=== PATIENT | male | born 1940 | race Caucasian/White ===

== ENCOUNTER → 2016-08-01 | Outpatient (CLI) | payer BC ==
[~2016-08-01] MED LIST: AMLO-110 PO; ASPCH81; BYS/5 PO; CRS10 PO; OMEG10007 PO
[2016-08-01 10:33] LABS: ESTIMATED AVERAGE GLUCOSE 120 mg/dl; HA1C FLAG Normal (Normal)
[2016-08-01 10:48] LABS: ALT/SGPT 28 U/L (12-78); AST/SGOT 17 U/L (15-37); BLOOD UREA NITROGEN 10 mg/dl (7-18); BUN/CREATININE RATIO 7.8 (10-20); CALCIUM 8.8 mg/dl (8.5-10.1); CARBON DIOXIDE 25 mmol/L (21-32); CHLORIDE 105 mmol/L (98-107); GLUCOSE 103 mg/dl (70-99); POTASSIUM 3.9 mmol/L (3.5-5.1); SODIUM 141 mmol/L (136-145)
[2016-08-01 10:54] LABS: ALKALINE PHOSPHATASE 55 U/L (45-117); CHOLESTEROL 121 mg/dl (0-200); CHOLESTEROL/HDL RATIO 3.8; HDL CHOLESTEROL 32 mg/dl; LDL CHOLESTEROL CALCULATED 46 mg/dl; PROSTATE SPECIFIC ANTIGEN 0.043 ng/ml (0.000-4.000); TRIGLYCERIDES 216 mg/dl (0-150); VERY LOW DENSITY LIPOPROT CALC 43 mg/dl
--- NOTE | 2016-08-05 10:07 | CODING QUERY MEDICAL NECESSITY ---
SUPPORTING DIAGNOSIS NEEDED Dr. Way, A supporting diagnosis is required for the test/procedure performed on this patient in order for us to be reimbursed by the patient's insurance. Please provide a supporting diagnosis for the following test/procedure listed below next to the test name along with your signature. *If there is no additional diagnosis for this patient that would support the following test/procedure please document that below next to the test/procedure. Test(s)/Procedure(s) that require a supporting diagnosis: * [id number] PSA DIAGNOSIS: DATE OF SERVICE: 08/01/16 Provider Signature: Date: Thank you Candido Waddell [facility] Information Management Once completed, please kindly fax back to [phone] For questions please call [phone]
== END | disposition home or self-care (01) ==
LOC: C.LAB 09:13
PROVIDERS: ATTEND Internal Medicine
DX: R73.01 Impaired fasting glucose (principal); C61 Malignant neoplasm of prostate

== ENCOUNTER → 2017-01-25 | Outpatient (CLI) | payer BC ==
[2017-01-25 10:44] LABS: BASO % 0.3 %; BASO ABS # 0.03 K/uL (0-0.2); COMPLETE YES; EOS % 2.4 %; HEMATOCRIT 48.5 % (42-52); IG% 0.2 %; LYMPH % 40.5 %; LYMPH ABS # 3.52 K/uL (1.2-3.4); MEAN CELL VOLUME 91.5 fL (80-100); MEAN CORPUSCULAR HEMOGLOBIN 31.1 pg (25-34); MEAN PLATELET VOLUME 10.2 fL (7.4-10.4); MONO % 10.8 %; NEUT % 45.8 %; PLATELET COUNT 220 K/uL (130-400)
[2017-01-25 10:57] LABS: ALT/SGPT 27 U/L (12-78); BLOOD UREA NITROGEN 20 mg/dl (7-18); BUN/CREATININE RATIO 15.5 (10-20); CALCIUM 8.8 mg/dl (8.5-10.1); CARBON DIOXIDE 27 mmol/L (21-32); CHLORIDE 108 mmol/L (98-107); CHOLESTEROL 111 mg/dl (0-200); GLUCOSE 105 mg/dl (70-99); POTASSIUM 3.9 mmol/L (3.5-5.1); SODIUM 141 mmol/L (136-145); TRIGLYCERIDES 136 mg/dl (0-150); VERY LOW DENSITY LIPOPROT CALC 27 mg/dl
[2017-01-25 11:01] LABS: ALKALINE PHOSPHATASE 58 U/L (45-117); AST/SGOT 18 U/L (15-37); CHOLESTEROL/HDL RATIO 3.1; HDL CHOLESTEROL 36 mg/dl; LDL CHOLESTEROL CALCULATED 48 mg/dl
[2017-01-25 12:11] LABS: ESTIMATED AVERAGE GLUCOSE 120 mg/dl; HA1C FLAG Normal (Normal)
--- NOTE | 2017-02-01 10:28 | CODING QUERY MEDICAL NECESSITY ---
SUPPORTING DIAGNOSIS NEEDED Dr. Way, A supporting diagnosis is required for the test/procedure performed on this patient in order for us to be reimbursed by the patient's insurance. Please provide a supporting diagnosis for the following test/procedure listed below next to the test name along with your signature. *If there is no additional diagnosis for this patient that would support the following test/procedure please document that below next to the test/procedure. Test(s)/Procedure(s) that require a supporting diagnosis: * [id number] PSA DIAGNOSIS: DATE OF SERVICE: 01/25/17 Provider Signature: Date: Thank you Candido Waddell [facility] Information Management Once completed, please kindly fax back to [phone] For questions please call [phone]
== END | disposition home or self-care (01) ==
LOC: C.LAB 09:41
PROVIDERS: ATTEND Internal Medicine
DX: R73.01 Impaired fasting glucose (principal); C61 Malignant neoplasm of prostate

== ENCOUNTER 2017-07-11 10:32 | Observation (INO) | payer BC ==
[~2017-07-11] VITALS: Ht 172.7 cm; Wt 85.0 kg
[2017-07-11] MEDS ORDERED: METOPROLOL TARTRATE 1 MG/ML VIAL IV STA (10:48)
[2017-07-11] MEDS ORDERED: SODIUM CHLORIDE 0.9% 500ML 500 ML IV STA (10:48)
--- NOTE | 2017-07-11 10:53 | EMERGENCY ROOM VISIT NOTE ---
History Report prepared by Chyna: Franky Magdaleno Under the Supervision of: Dr. John Logan M.D. First contact with patient: 10:42 Chief Complaint: CARDIAC ASSESSMENT Stated Complaint: ATRIAL FIBRILATION - RAPID RESPONSE History of Present Illness The patient is a 76 year old male who presents to the Emergency Room for a cardiac assessment. He has a past medical history of hypertension and hyperlipidemia. The patient was at [facility] about to receive a colonoscopy and was found to be in atrial fibrillation. This has never happened to the patient before and he denies any cardiac history. He denies any abnormal symptoms at this time including chest pain, shortness of breath, or dizziness. He notes that he has a family history of atrial fibrillation in regard to his brother. He is not on any blood thinners. Source of History: patient Onset: earlier this morning Position: other (Cardiac) Symptom Intensity: moderate Quality: other (Possible A-FIB) Timing: constant Associated Symptoms: No chest pain, No SOB Note: He denies any dizziness or any abnormal symptom at this time. Review of Systems See HPI for pertinent positives & negatives. A total of 10 systems reviewed and were otherwise negative. Past Medical & Surgical Medical Problems: (1) HLD (hyperlipidemia) (2) HTN (hypertension) Family History Atrial fibrillation Social History Smoking Status: Never Smoker Smokeless Tobacco Use: No Drug Use: none Marital Status: Housing Status: lives with significant other Occupation Status: retired Current/Historical Medications Scheduled Amlodipine (Norvasc), 5 MG PO DAILY Aspirin (Aspirin), 8 MG PO DAILY Fish Oil ([place]-3), 1 CAP PO DAILY Rosuvastatin Calcium (Crestor), 10 MG PO HS Miscellaneous Medications Nebivolol Hcl (Bystolic), 5 MG PO Allergies Coded Allergies: No Known Allergies (Unverified , 07/11/17) Physical Exam Vital Signs Date Time Temp Pulse Resp B/P (MAP) Pulse Ox O2 Delivery O2 Flow Rate FiO2 07/11/17 12:16 155/100 07/11/17 12:00 93 19 148/90 96 07/11/17 11:45 140/87 07/11/17 11:30 104 11 153/88 90 07/11/17 11:17 94 14 142/97 97 Room Air 07/11/17 11:10 96 19 150/98 97 Room Air 07/11/17 11:05 105 14 149/101 97 Room Air 07/11/17 11:03 119 152/105 07/11/17 11:00 109 13 152/105 98 Room Air 07/11/17 10:54 97 Room Air 07/11/17 10:51 130 07/11/17 10:38 36.6 124 20 152/97 97 Room Air Physical Exam GENERAL: Patient is in no acute distress. HEENT: No acute trauma, normocephalic atraumatic, mucous membranes moist, no nasal congestion, no scleral icterus. NECK: No stridor, no adenopathy, no meningismus, trachea is midline. LUNGS: Clear to auscultation bilaterally, no wheeze, no rhonchi, breath sounds equal. HEART: Tachycardic rate with an irregular rhythm. No murmurs. ABDOMEN: Soft, nontender, bowel sounds positive, no hernias, no peritonitis. EXTREMITIES: No cyanosis or edema, full range of motion of all the joints without pain or difficulty, no signs for acute trauma. NEUROLOGIC: Oriented x 3, no acute motor or sensory deficits, no focal weakness. SKIN: No rash, no jaundice, no diaphoresis. Medical Decision & Procedures ER Provider Diagnostic Interpretation: Radiology results as stated below per my review and radiologist interpretation: CHEST ONE VIEW PORTABLE CLINICAL HISTORY: Chest pain. COMPARISON STUDY: No previous studies for comparison. FINDINGS: Lung volumes are normal. No pneumothorax or pleural effusion is noted. An 8 mm radiodensity projects over the right midlung and posterior right seventh rib. This likely reflects a calcified nodule or benign rib lesion. A few old left rib fractures are noted. There is no evidence for pulmonary edema. There is no consolidation to suggest pneumonia. IMPRESSION: No acute cardiopulmonary findings. Electronically signed by: Bernardino Cox M.D. 07/11/2017 11:03 AM Dictated Date/Time: 07/11/2017 10:58 AM Laboratory Results 07/11/17 10:50 07/11/17 10:50 Test 07/11/17 10:50 Red Blood Count 5.70 M/uL (4.7-6.1) Mean Corpuscular Volume 90.5 fL (80-100) Mean Corpuscular Hemoglobin 32.6 pg (25-34) Mean Corpuscular Hemoglobin Concent 36.0 g/dl (32-36) RDW Standard Deviation 46.3 fL (36.4-46.3) RDW Coefficient of Variation 13.9 % (11.5-14.5) Mean Platelet Volume 9.8 fL (7.4-10.4) Prothrombin Time 10.7 SECONDS (9.0-12.0) Prothromb Time International Ratio 1.0 (0.9-1.1) Activated Partial Thromboplast Time 27.6 SECONDS (21.0-31.0) Partial Thromboplastin Ratio 1.1 Anion Gap 7.0 mmol/L (3-11) Est Creatinine Clear Calc Drug Dose 48.0 ml/min Estimated GFR () 55.1 Estimated GFR (Non- 47.6 BUN/Creatinine Ratio 7.6 (10-20) Calcium Level 8.8 mg/dl (8.5-10.1) Magnesium Level 2.0 mg/dl (1.8-2.4) Total Bilirubin 1.1 mg/dl (0.2-1) Aspartate Amino Transf (AST/SGOT) 21 U/L (15-37) Alanine Aminotransferase (ALT/SGPT) 28 U/L (12-78) Alkaline Phosphatase 48 U/L (45-117) Troponin I < 0.015 ng/ml (0-0.045) Total Protein 7.6 gm/dl (6.4-8.2) Albumin 4.0 gm/dl (3.4-5.0) Globulin 3.6 gm/dl (2.5-4.0) Albumin/Globulin Ratio 1.1 (0.9-2) Thyroid Stimulating Hormone (TSH) 2.060 uIu/ml (0.300-4.500) Laboratory results reviewed by me. Medications Administered Medications (Trade) Dose Ordered Sig/Mel Route Start Time Stop Time Status Last Admin Dose Admin Sodium Chloride 500 ml @ 999 mls/hr Q31M STAT IV 07/11/17 10:48 07/11/17 11:18 DC 07/11/17 11:02 999 MLS/HR Metoprolol Tartrate (Lopressor Iv) 10 mg NOW STAT IV 07/11/17 10:48 07/11/17 10:51 DC 07/11/17 11:03 5 MG Sodium Chloride 1,000 ml @ 100 mls/hr Q10H IV 07/11/17 12:21 07/11/17 22:20 07/11/17 15:18 100 MLS/HR Metoprolol Tartrate (Lopressor Tab) 50 mg NOW STAT PO 07/11/17 12:21 07/11/17 12:33 DC 07/11/17 12:49 50 MG ECG Indication: tachycardia Rate (beats per minute): 125 Rhythm: atrial fibrillation Findings: no acute ischemic change, other (No artifact) Change: ECG interpreted by me ED Course 1042: The patient was evaluated in room B9. A complete history and physical exam was performed. 1048: Ordered Lopressor Iv 10 mg IV, Sodium Chloride 500 ml @ 999 mls/hr IV 1149: Upon reexamination the patient is resting. I discussed results and treatment plan with the patient. He verbalizes agreement and understanding. I spoke [place] [facility] [place] discussed the patient's results and findings. The patient will be evaluated by him for further management. Medical Decision Differential diagnosis includes but is not limited to rapid atrial fibrillation , SVT, atrial flutter, electrolyte imbalance, DC, infection, and dehydration. There is no leukocytosis or concerning anemia. No significant electrolyte abnormality, kidney failure or hepatitis. The patient appears to be in a euthyroid state. EKG shows a rapid A. fib, no acute ischemia. Cardiac enzyme testing 1 is not consistent with acute cardiac injury. Chest x-ray does not show mediastinal widening, pneumonia or pneumothorax. The patient presents with a rapid A. fib. He was aggressively managed. He received IV saline and IV Lopressor, he is doing well, the heart rate is better controlled. The patient requires a hospital stay for further cardiac workup. We are unsure how long he has been in this rhythm. I spoke to case management. The on-call hospitalist was consulted. Medication Reconcilliation Current Medication List: was personally reviewed by me Blood Pressure Screening Patient's blood pressure: Elevated blood pressure Referred to hospitalist Consults Time Called: [phone] Consulting Physician: Dr. Whyte - [facility] [place]ed Call: [phone] Discussed the patient's case. The patient will be evaluated for further management. Impression Primary Impression: Rapid atrial fibrillation Scribe Attestation The scribe's documentation has been prepared under my direction and personally reviewed by me in its entirety. I confirm that the note above accurately reflects all work, treatment, procedures, and medical decision making performed by me. Departure Information Dispostion Being Evaluated By Hospitalist Referrals Fransisco Way M.D. (PCP) Patient Instructions My [facility]
[2017-07-11 11:02] LABS: HEMATOCRIT 51.6 % (42-52); HEMOGLOBIN 18.6 g/dL (14.0-18.0); MEAN CELL VOLUME 90.5 fL (80-100); MEAN CORPUSCULAR HEMOGLOBIN 32.6 pg (25-34); MEAN PLATELET VOLUME 9.8 fL (7.4-10.4); PLATELET COUNT 212 K/uL (130-400); RED CELL DISTRIBUTION WIDTH CV 13.9 % (11.5-14.5); RED CELL DISTRIBUTION WIDTH SD 46.3 fL (36.4-46.3); WHITE BLOOD COUNT 9.32 K/uL (4.8-10.8)
--- NOTE | 2017-07-11 11:04 | DIAGNOSTIC IMAGING REPORT ---
CHEST ONE VIEW PORTABLE CLINICAL HISTORY: Chest pain. COMPARISON STUDY: No previous studies for comparison. FINDINGS: Lung volumes are normal. No pneumothorax or pleural effusion is noted. An 8 mm radiodensity projects over the right midlung and posterior right seventh rib. This likely reflects a calcified nodule or benign rib lesion. A few old left rib fractures are noted. There is no evidence for pulmonary edema. There is no consolidation to suggest pneumonia. IMPRESSION: No acute cardiopulmonary findings. Electronically signed by: Bernardino Cox M.D. 07/11/2017 11:03 AM Dictated Date/Time: 07/11/2017 10:58 AM
[2017-07-11 11:10] LABS: PTT PATIENT 27.6 SECONDS (21.0-31.0)
[2017-07-11] MEDS ORDERED: ASPI-461 PO (11:17)
[2017-07-11] MEDS ORDERED: CRS/10 PO (11:17)
[2017-07-11 11:21] LABS: BLOOD UREA NITROGEN 11 mg/dl (7-18); CALCIUM 8.8 mg/dl (8.5-10.1); CARBON DIOXIDE 25 mmol/L (21-32); CREATININE 1.43 mg/dl (0.60-1.40); GLUCOSE 134 mg/dl (70-99); POTASSIUM 3.5 mmol/L (3.5-5.1); SODIUM 137 mmol/L (136-145)
[2017-07-11 11:32] LABS: ALKALINE PHOSPHATASE 48 U/L (45-117); ALT/SGPT 28 U/L (12-78); AST/SGOT 21 U/L (15-37); TOTAL PROTEIN 7.6 gm/dl (6.4-8.2)
--- NOTE | 2017-07-11 12:09 | History and Physical ---
History & Physical Date & Time of Service: Jul 11, 2017 at 11:57 Chief Complaint: Atrial Fibrilation - Rapid Response Primary Care Physician: Fransisco Way M.D. History of Present Illness Source: patient 76yo male with history of HTN & Hyperlipidemia who presents after he was found to be in rapid a. fib when he went to [facility] for a routine colonoscopy. His heart rate was in the 140s when he presented there. EKG from [facility] confirmed rapid a. fib. He takes bystolic for HTN and has been on such for 2-3 years. He took his bystolic this AM about 0300. He notes he works out several times a week at the gym and has not noted ANY limiting chest pain, dyspnea, palpitations, or lightheadedness. Exercise capacity has been unchanged. No prior h/o CAD or PE or hyperthyroidism. Past Medical/Surgical History PMH: 1. HTN 2. 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 prostate cancer no h/o CAD, PE, CKD, stroke, CHF PSH: 1. vasectomy 2. prostate cancer s/p radiation seeds Family History brother - a. fib mother - no CAD; from biliary tract disease - cause? 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)) Multi-Drug Resistant Organisms History of MDRO: No Allergies Coded Allergies: No Known Allergies (Unverified , 07/11/17) Home Medications Scheduled Amlodipine (Norvasc), 5 MG PO DAILY Aspirin (Aspirin), 8 MG PO DAILY Fish Oil ([place]-3), 1 CAP PO DAILY Rosuvastatin Calcium (Crestor), 10 MG PO HS Miscellaneous Medications Nebivolol Hcl (Bystolic), 5 MG PO Review of Systems Constitutional: No fever, No chills, No weight loss, No weakness, No fatigue Eyes: No worsening of vision ENT: No nasal symptoms, No sore throat, No trouble swallowing Respiratory: No cough, No sputum, No wheezing, No shortness of breath, No dyspnea on exertion Cardiovascular: No chest pain, No orthopnea, No PND, No edema, No palpitations Abdomen: No pain, No nausea, No vomiting, No diarrhea, No GI bleeding Musculoskeletal: No joint pain, No muscle pain Genitourinary - Male: No hematuria, No dysuria Neurologic: No numbness/tingling Psychiatric: No depression symptoms, No anxiety Endocrine: No fatigue Hematologic / Lymphatic: No abnormal bleeding/bruising Integumentary: No rash Physical Exam Vital Signs Date Time Temp Pulse Resp B/P (MAP) Pulse Ox O2 Delivery O2 Flow Rate FiO2 07/11/17 11:17 94 14 142/97 97 Room Air 07/11/17 11:10 96 19 150/98 97 Room Air 07/11/17 11:05 105 14 149/101 97 Room Air 07/11/17 11:03 119 152/105 07/11/17 11:00 109 13 152/105 98 Room Air 07/11/17 10:54 97 Room Air 07/11/17 10:51 130 07/11/17 10:38 36.6 124 20 152/97 97 Room Air General Appearance: WD/WN, no apparent distress Head: normocephalic, atraumatic Eyes: PERRL ENT: hearing grossly normal, TMs normal, pharynx normal Neck: supple, no adenopathy, thyroid normal, no JVD, no carotid bruits Respiratory/Chest: lungs clear, no respiratory distress, no accessory muscle use Cardiovascular: no gallop, no JVD, no murmur, normal peripheral pulses, + tachycardia, + irregularly irregular Abdomen/GI: normal bowel sounds, non tender, soft, no organomegaly Back: normal inspection Extremities/Musculoskelatal: no pedal edema Neurologic/Psych: no motor/sensory deficits, alert, normal mood/affect, normal reflexes, oriented x 3 Skin: no rash Lymphatic: no adenopathy (CERVICAL ) Diagnostics Laboratory Results Results Past 24 Hours Test 07/11/17 10:50 Range/Units White Blood Count 9.32 4.8-10.8 K/uL Red Blood Count 5.70 4.7-6.1 M/uL Hemoglobin 18.6 14.0-18.0 g/dL Hematocrit 51.6 42-52 % Mean Corpuscular Volume 90.5 80-100 fL Mean Corpuscular Hemoglobin 32.6 25-34 pg Mean Corpuscular Hemoglobin Concent 36.0 32-36 g/dl RDW Standard Deviation 46.3 36.4-46.3 fL RDW Coefficient of Variation 13.9 11.5-14.5 % Platelet Count 212 130-400 K/uL Mean Platelet Volume 9.8 7.4-10.4 fL Prothrombin Time 10.7 9.0-12.0 SECONDS Prothromb Time International Ratio 1.0 0.9-1.1 Activated Partial Thromboplast Time 27.6 21.0-31.0 SECONDS Partial Thromboplastin Ratio 1.1 Sodium Level 137 136-145 mmol/L Potassium Level 3.5 3.5-5.1 mmol/L Chloride Level 105 98-107 mmol/L Carbon Dioxide Level 25 21-32 mmol/L Anion Gap 7.0 3-11 mmol/L Blood Urea Nitrogen 11 7-18 mg/dl Creatinine 1.43 0.60-1.40 mg/dl Est Creatinine Clear Calc Drug Dose 48.0 ml/min Estimated GFR () 55.1 Estimated GFR (Non- 47.6 BUN/Creatinine Ratio 7.6 10-20 Random Glucose 134 70-99 mg/dl Calcium Level 8.8 8.5-10.1 mg/dl Magnesium Level 2.0 1.8-2.4 mg/dl Total Bilirubin 1.1 0.2-1 mg/dl Aspartate Amino Transf (AST/SGOT) 21 15-37 U/L Alanine Aminotransferase (ALT/SGPT) 28 12-78 U/L Alkaline Phosphatase 48 45-117 U/L Troponin I < 0.015 0-0.045 ng/ml Total Protein 7.6 6.4-8.2 gm/dl Albumin 4.0 3.4-5.0 gm/dl Globulin 3.6 2.5-4.0 gm/dl Albumin/Globulin Ratio 1.1 0.9-2 Thyroid Stimulating Hormone (TSH) 2.060 0.300-4.500 uIu/ml Diagnostic Radiology CXR - FINDINGS: Lung volumes are normal. No pneumothorax or pleural effusion is noted. An 8 mm radiodensity projects over the right midlung and posterior right seventh rib. This likely reflects a calcified nodule or benign rib lesion. A few old left rib fractures are noted. There is no evidence for pulmonary edema. There is no consolidation to suggest pneumonia. IMPRESSION: No acute cardiopulmonary findings. EKG ekg - my reading - a. fib with RVR NS ST changes V1, V2 RSR' pattern V2 q wave lead III only Impression Assessment and Plan 76yo male with long-standing HTN x 35 years, hyperlipidemia, and prior prostate cancer treated with brachytherapy presenting with asymptomatic rapid a. fib after he went to [facility] today for routine colonoscopy. During that visit had irregular pulse and tachycardia; EKG confirmed a. fib. Colonoscopy was deferred due to the newly discovered a. fib. He has no symptoms referable to the a. fib and has been working out at the gym recently without any limiting symptoms. Received IV lopressor in our ER today with improved rate control. 1. new onset a. fib with RVR - * CHADsVASC score is at least a 3 (age, HTN) * recommended systemic anticoagulation * ordered eliquis 5mg BID (cost $20/month) * hold bystolic; place on metoprolol 50mg BID; titrate as needed * echocardiogram - check EF, valve function, atrial size, etc * no evidence of ACS, hyperthyroid state, or electrolyte abnormality * cardiology consult for additional recommendations * place on telemetry unit 2. HTN - uncontrolled - continue amlodipine, substitute metoprolol for bystolic. Titrate meds as needed. 3. hyperlipidemia - continue statin agent. 4. minimal increase in creatinine above baseline (1.2-1.3) - likely due to recent bowel prep for colonoscopy. Hydrate with NS at 100cc/hr x 1 liter then saline lock; repeat BMP am. 5. h/o prostate cancer - noted; followed annually by [facility]. 6. mild polycythemia - likely hemoconcentration in setting of recent bowel prep and fasting state. Hydrate, repeat CBC am. 7. hyperglycemia - check hemoglobin a1c, r/o early DM. Level of Care Telemetry Resuscitation Status FULL RESUSCITATION VTE Prophylaxis VTE Risk Assessment Done? Y/N: Yes Risk Level: Low Given or contraindicated: Other Anticoagulation Social Service Consult None Apply Note place on observation status - time 60 min Additional Copies To Fransisco Way M.D.
[2017-07-11] MEDS ORDERED: SODIUM CHLORIDE 0.9% 1000ML 1,000 ML IV SCH (12:21)
[2017-07-11] MEDS ORDERED: METOPROLOL TARTRATE 50 MG TAB PO STA (12:21)
[2017-07-11] MEDS ORDERED: ALUMINUM/MAGNESIUM/SIMETH (MAALOX MAX) 30 ML UDC PO PRN (12:30)
[2017-07-11] MEDS ORDERED: MAGNESIUM HYDROXIDE SUSP 30 ML UDC PO PRN (12:30)
[2017-07-11] MEDS ORDERED: ACETAMINOPHEN 325 MG TAB PO PRN (12:30)
[2017-07-11] MEDS ORDERED: ONDANSETRON INJ 2 MG/ML 2 ML VIAL IV PRN (12:30)
[2017-07-11 12:35] VITALS: O2SAT 97; Ht 172.7 cm; Wt 85.0 kg
[2017-07-11] MEDS ORDERED: IV FLUIDS COMPLETED PRN (13:00)
[2017-07-11 13:20] VITALS: BP 159/107; PULSE 87; TEMP 37.4; O2SAT 96
[2017-07-11] MEDS: APIXABAN 2.5 MG TAB PO SCH ×2 (15:17→20:41)
[2017-07-11 15:24] VITALS: BP 134/91; PULSE 84; TEMP 36.7; O2SAT 95
--- NOTE | 2017-07-11 16:56 | ECHOCARDIOGRAM REPORT ---
*NOTICE TO RECEIVING DEMOCRAT AGENCY This information is strictly Confidential and protected under [place] law. [place] law prohibits you from making any further disclosure of this information unless further disclosure is expressly permitted by the written consent of the person to whom it pertains or is authorized by law. A general authorization for the release of medical or other information is not sufficient for this purpose. Hospital accepts no responsibility if the information is made available to any other person, INCLUDING THE PATIENT. Interpretation Summary * Name: MIKE SWENSON Study Date: 07/11/2017 03:36 PM BP: 159/107 mmHg * Patient Location: [facility] [place] HR: 87 * : 1940 (M/d/yyyy) Gender: Male Height: 68 in * Age: 76 yrs Ethnicity: CA Weight: 193 lb * Ordering Physician: Saud Whyte * Referring Physician: Self, Referred * Performed By: Brynn Fulton RDCS * * Reason For Study: Atrial fibrillation * BSA: 2.0 m2 * -- Conclusions -- * 1. Normal LV size. Normal LV wall thickness. * 2. Normal LV systolic function. LVEF 60-65%. No regional wall motion abnormalities. * 3. Normal RV size and function. Mild right atrial enlargement. * 4. Mild aortic insufficiency. * 5. Normal estimated PA and RA pressures. * 6. Compared with prior study on 09/08/2011: No significant change Procedure Details * A complete two-dimensional transthoracic echocardiogram was performed (2D, M-mode, Doppler and color flow Doppler). Left Ventricle * The left ventricle is grossly normal size. * There is normal left ventricular wall thickness. * Ejection Fraction = 60-65%. Right Ventricle * The right ventricle is grossly normal size. * The right ventricular systolic function is normal as assessed by tricuspid annular plane systolic excursion (TAPSE) (normal >1.5 cm). Atria * The left atrial size is normal. * The right atrium is mildly dilated. * No ASD detected; PFO is not assessed. Mitral Valve * The mitral valve is grossly normal. * There is no mitral valve stenosis. * There is trace mitral regurgitation. Tricuspid Valve * The tricuspid valve is not well visualized, but is grossly normal. * There is trace tricuspid regurgitation. Aortic Valve * Aortic valve sclerosis mild, without significant aortic valvular stenosis. * The aortic valve is trileaflet. * No hemodynamically significant valvular aortic stenosis. * Mild aortic regurgitation. Pulmonic Valve * The pulmonic valve is not well visualized. * There is no pulmonic valvular stenosis. * There is no significant pulmonary regurgitation. Great Vessels * The aortic root and proximal ascending aorta are normal sized. Pericardium/Pleural * There is no pericardial effusion. Great Vessels * Normal inferior vena cava size and collapsability with sniff indicates a normal right atrial pressure of 3 mmHg * There is no evidence of pulmonary hypertension. The PA systolic pressure is less than 36 mmHg. MMode 2D Measurements and Calculations IVSd 1.0 cm LVIDd 4.0 cm LVIDs 2.7 cm LVPWd 1.1 cm IVS/LVPW 0.93 FS 33.9 % EDV(Teich) 70.7 ml ESV(Teich) 25.9 ml EF(Teich) 63.4 % EDV(cubed) 64.8 ml ESV(cubed) 18.7 ml EF(cubed) 71.2 % LV mass(C)d 134.9 grams LV mass(C)dI 67.0 grams/m\S\2 SV(Teich) 44.8 ml SI(Teich) 22.3 ml/m\S\2 SV(cubed) 46.1 ml SI(cubed) 22.9 ml/m\S\2 Ao root diam 3.3 cm Ao root area 8.8 cm\S\2 ACS 1.8 cm LA dimension 3.6 cm asc Aorta Diam 3.5 cm LA/Ao 1.1 LVAd ap4 21.9 cm\S\2 LVLd ap4 6.5 cm EDV(MOD-sp4) 60.6 ml EDV(sp4-el) 62.0 ml LVAs ap4 12.9 cm\S\2 LVLs ap4 5.4 cm ESV(MOD-sp4) 26.5 ml ESV(sp4-el) 26.0 ml EF(MOD-sp4) 56.3 % EF(sp4-el) 58.0 % LVAd ap2 24.8 cm\S\2 LVLd ap2 6.7 cm EDV(MOD-sp2) 75.6 ml EDV(sp2-el) 78.3 ml LVAs ap2 14.0 cm\S\2 LVLs ap2 5.4 cm ESV(MOD-sp2) 29.3 ml ESV(sp2-el) 31.0 ml EF(MOD-sp2) 61.2 % EF(sp2-el) 60.4 % LVLd %diff 1.6 % EDV(MOD-bp) 68.9 ml LVLs %diff -0.39 % ESV(MOD-bp) 28.0 ml EF(MOD-bp) 59.3 % SV(MOD-sp4) 34.1 ml SI(MOD-sp4) 16.9 ml/m\S\2 SV(MOD-sp2) 46.3 ml SI(MOD-sp2) 23.0 ml/m\S\2 SV(MOD-bp) 40.8 ml SI(MOD-bp) 20.3 ml/m\S\2 SV(sp4-el) 35.9 ml SI(sp4-el) 17.8 ml/m\S\2 SV(sp2-el) 47.3 ml SI(sp2-el) 23.5 ml/m\S\2 Doppler Measurements and Calculations MV E max beto 97.0 cm/sec MV dec time 0.19 sec Ao V2 max 101.0 cm/sec Ao max PG 4.1 mmHg Ao max PG (full) 1.4 mmHg LV V1 max PG 2.7 mmHg LV V1 max 82.0 cm/sec PA V2 max 74.7 cm/sec PA max PG 2.2 mmHg PA acc slope 445.4 cm/sec\S\2 PA acc time 0.11 sec TR max beto 94.5 cm/sec PA pr(Accel) 31.5 mmHg
--- NOTE | 2017-07-11 17:59 | Cardiology Consultation ---
Cardiology Consultation Date of Consultation: Jul 11, 2017. Requesting Physician: Dr. Gupta Reason for Consultation: Atrial fibrillation Pt evaluation today including: conversation w/ patient, physical exam, lab review, review of studies, review of inpatient medication list, conversation w/ attending History of Present Illness This is a very pleasant 76-year-old gentleman who has a history of hypertension and hyperlipidemia but no known cardiac history before presenting in atrial fibrillation for routine colonoscopy today. He was unaware of the arrhythmia, he went for his routine colonoscopy was noted to have a rapid heart rate which was confirmed to be atrial fibrillation. He remained unaware of the arrhythmia, he does not note any change in his exercise ability, has not been aware of a change in his heart rate lately and does not have edema, chest discomfort, shortness of breath, etc. He has not been seen for perhaps 6 months in the office and although he goes to gym regularly he does not watch his heart rate. He was sent to the emergency room, there he received medications for heart rate control as well as Eliquis for anticoagulation and was admitted. Echocardiography shows normal left ventricular size and function with no regional wall motion abnormalities and left atrial size is normal. At the time of my evaluation he is resting in his room, he is comfortable and has no complaints. Past Medical/Surgical History (1) HTN (hypertension) (2) HLD (hyperlipidemia) Family History Atrial fibrillation Social History Smoking Status: Never Smoker History of Alcohol Use: Yes (1 glass of wine daily) Review of Systems Constitutional: No fever, No weight loss, No weakness Respiratory: No cough, No wheezing, No shortness of breath, No dyspnea on exertion Cardiac: No chest pain, No orthopnea, No PND, No edema, No palpitations Abdomen: No pain, No nausea, No vomiting, No diarrhea, No GI bleeding Male : No urinary frequency, No nocturia more than once/night, No slowing stream, No sexual dysfunction Neurologic: No paralysis, No weakness, No numbness/tingling, No balance problems Heme: No abnormal bleeding/bruising, No clotting problems Endo: No fatigue Skin: No problem reported All Other Systems: Reviewed and Negative Allergies Coded Allergies: No Known Allergies (Unverified , 07/11/17) Medications Current Inpatient Medications Medications (Trade) Dose Ordered Sig/Mel Route Start Time Stop Time Status Last Admin Dose Admin Sodium Chloride 1,000 ml @ 100 mls/hr Q10H IV 07/11/17 12:21 07/11/17 22:20 07/11/17 15:18 100 MLS/HR Acetaminophen (Tylenol Tab) 650 mg Q4H PRN PO 07/11/17 12:30 08/10/17 12:29 Al Hydrox/Mg Hydrox/Simethicone (Maalox Max Susp) 15 ml Q4H PRN PO 07/11/17 12:30 08/10/17 12:29 Magnesium Hydroxide (Milk Of Magnesia Susp) 30 ml Q12H PRN PO 07/11/17 12:30 08/10/17 12:29 Ondansetron HCl (Zofran Inj) 4 mg Q6H PRN IV 07/11/17 12:30 08/10/17 12:29 Fish Oil ([place]-3 (Purified Fish Oil) Cap) 1 gm DAILY PO 07/12/17 09:00 08/11/17 08:59 Rosuvastatin Calcium (Crestor Tab) 10 mg HS PO 07/11/17 21:00 08/10/17 20:59 Metoprolol Tartrate (Lopressor Tab) 50 mg BID PO 07/11/17 21:00 08/10/17 20:59 Apixaban (Eliquis Tab) 5 mg BID PO 07/11/17 12:30 08/10/17 12:29 07/11/17 15:17 5 MG Amlodipine Besylate (Norvasc Tab) 5 mg DAILY PO 07/12/17 09:00 08/11/17 08:59 Miscellaneous (Iv Fluids Completed) 1 ea PRN PRN N/A 07/11/17 13:00 07/11/18 12:59 Physical Exam Vital Signs Past 12 Hours Date Time Temp Pulse Resp B/P (MAP) Pulse Ox O2 Delivery O2 Flow Rate FiO2 07/11/17 15:24 36.7 84 20 134/91 (105) 95 Room Air 07/11/17 13:20 37.4 87 18 159/107 (124) 96 Room Air 07/11/17 12:35 97 Room Air 07/11/17 12:30 104 23 165/106 07/11/17 12:16 155/100 07/11/17 12:00 93 19 148/90 96 07/11/17 11:45 140/87 07/11/17 11:30 104 11 153/88 90 07/11/17 11:17 94 14 142/97 97 Room Air 07/11/17 11:10 96 19 150/98 97 Room Air 07/11/17 11:05 105 14 149/101 97 Room Air 07/11/17 11:03 119 152/105 07/11/17 11:00 109 13 152/105 98 Room Air 07/11/17 10:54 97 Room Air 07/11/17 10:51 130 07/11/17 10:38 36.6 124 20 152/97 97 Room Air Constitutional: General Apperance: heathly-appearing Level of Distress: NAD Psychiatric: Mental Status: active & alert Head: normocephalic Eyes: EOM: EOMI ENMT: normal ENT inspection, hearing grossly normal Neck: supple, no masses Lungs: Respiratory effort: no dyspnea, good air movement Auscultation: breath sounds normal, no wheezing Cardiovascular: Heart Auscultation: no murmurs, no rubs, no gallops, irregular rate rhythm Peripheral Pulses: Bruits: none appreciated Abdomen: Bowel Sounds: normal Inspection & Palpation: soft, no tenderness, guarding & rebound, no masses Musculoskeletal: normal strength (5/5 throughout) Extremities: no edema Neurologic: Cranial Nerves: grossly intact Sensation: grossly intact Data Laboratory Results: Last 24 Hours Test 07/11/17 10:50 White Blood Count 9.32 K/uL Red Blood Count 5.70 M/uL Hemoglobin 18.6 g/dL Hematocrit 51.6 % Mean Corpuscular Volume 90.5 fL Mean Corpuscular Hemoglobin 32.6 pg Mean Corpuscular Hemoglobin Concent 36.0 g/dl RDW Standard Deviation 46.3 fL RDW Coefficient of Variation 13.9 % Platelet Count 212 K/uL Mean Platelet Volume 9.8 fL Prothrombin Time 10.7 SECONDS Prothromb Time International Ratio 1.0 Activated Partial Thromboplast Time 27.6 SECONDS Partial Thromboplastin Ratio 1.1 Sodium Level 137 mmol/L Potassium Level 3.5 mmol/L Chloride Level 105 mmol/L Carbon Dioxide Level 25 mmol/L Anion Gap 7.0 mmol/L Blood Urea Nitrogen 11 mg/dl Creatinine 1.43 mg/dl Est Creatinine Clear Calc Drug Dose 48.0 ml/min Estimated GFR () 55.1 Estimated GFR (Non- 47.6 BUN/Creatinine Ratio 7.6 Random Glucose 134 mg/dl Calcium Level 8.8 mg/dl Magnesium Level 2.0 mg/dl Total Bilirubin 1.1 mg/dl Aspartate Amino Transf (AST/SGOT) 21 U/L Alanine Aminotransferase (ALT/SGPT) 28 U/L Alkaline Phosphatase 48 U/L Troponin I < 0.015 ng/ml Total Protein 7.6 gm/dl Albumin 4.0 gm/dl Globulin 3.6 gm/dl Albumin/Globulin Ratio 1.1 Thyroid Stimulating Hormone (TSH) 2.060 uIu/ml EKG: His presenting electrocardiogram shows atrial fibrillation with a heart rate of 125 bpm, a suggestion of an inferior myocardial infarction. Telemetry reviewed: Atrial fibrillation, initially rapid with better rate control at rest tonight. Assessment & Plan #1. Atrial fibrillation: At this point we do not know whether he has paroxysmal atrial fibrillation or persistent, I can't tell the duration since he seems completely asymptomatic. It probably occurred less than 6 months ago since he was evaluated at his physician's office at that time, but I suspect is more recent. It may be paroxysmal and may self terminated. In any case I think the appropriate treatment at the moment is rate control and anticoagulation, if he remains in it I would plan on cardioversion after 3-4 weeks of appropriate anticoagulation. Thank you for allowing me to participate in his care.
[2017-07-11 19:06] VITALS: BP 140/91; PULSE 88; TEMP 36.7; O2SAT 96
[2017-07-11 20:00] VITALS: O2SAT 96
[2017-07-11] MEDS ORDERED: METOPROLOL TARTRATE 50 MG TAB PO SCH (21:00)
[2017-07-11] MEDS ORDERED: ROSUVASTATIN CALCIUM 10 MG TAB PO SCH (21:00)
[2017-07-12] VITALS (7 sets, daily range): BP systolic 123–159; BP diastolic 80–93; PULSE 71–85; TEMP 36.6–36.9; O2SAT 95–97
[2017-07-12 06:06] LABS: HEMATOCRIT 45.7 % (42-52); HEMOGLOBIN 15.8 g/dL (14.0-18.0); MEAN CELL VOLUME 91.4 fL (80-100); MEAN CORPUSCULAR HEMOGLOBIN 31.6 pg (25-34); MEAN CORPUSCULAR HGB CONC 34.6 g/dl (32-36); MEAN PLATELET VOLUME 9.7 fL (7.4-10.4); PLATELET COUNT 193 K/uL (130-400); RED CELL DISTRIBUTION WIDTH CV 14.1 % (11.5-14.5); WHITE BLOOD COUNT 9.26 K/uL (4.8-10.8)
[2017-07-12 06:39] LABS: CALCIUM 8.3 mg/dl (8.5-10.1); CREATININE 1.43 mg/dl (0.60-1.40); POTASSIUM 3.8 mmol/L (3.5-5.1)
[2017-07-12] MEDS: APIXABAN 2.5 MG TAB PO SCH (07:59)
--- NOTE | 2017-07-12 08:52 | Cardiology Follow-Up ---
Subjective Date of Service: Jul 12, 2017. Pt evaluation today including: conversation w/ patient, physical exam, lab review, review of studies, review of inpatient medication list History of Present Illness This is a very pleasant 76-year-old gentleman who has a history of hypertension and hyperlipidemia but no known cardiac history before presenting in atrial fibrillation for routine colonoscopy today. He was unaware of the arrhythmia, he went for his routine colonoscopy was noted to have a rapid heart rate which was confirmed to be atrial fibrillation. He remained unaware of the arrhythmia, he does not note any change in his exercise ability, has not been aware of a change in his heart rate lately and does not have edema, chest discomfort, shortness of breath, etc. He has not been seen for perhaps 6 months in the office and although he goes to gym regularly he does not watch his heart rate. He was sent to the emergency room, there he received medications for heart rate control as well as Eliquis for anticoagulation and was admitted. Echocardiography shows normal left ventricular size and function with no regional wall motion abnormalities and left atrial size is normal. Today he feels well, no complaints, no awareness of his HR. Social History Smoking Status: Never Smoker History of Alcohol Use: Yes (1 glass of wine daily) Review of Systems Respiratory: No cough, No wheezing, No shortness of breath, No dyspnea on exertion Cardiac: No chest pain, No orthopnea, No PND, No edema, No palpitations Medications Cardiovascular: Item Value Date Time Nebivolol 10 mg 07/12/17 0900 (Bystolic Tab) DAILY/PO 07/12/17 0759 Rosuvastatin 10 mg 07/11/17 2100 Calcium HS/PO 07/11/17 2041 (Crestor Tab) Apixaban 5 mg 07/11/17 1230 (Eliquis Tab) BID/PO 07/12/17 0759 Objective Vital Signs Past 12 Hours Date Time Temp Pulse Resp B/P (MAP) Pulse Ox O2 Delivery O2 Flow Rate FiO2 07/12/17 07:57 36.9 84 18 152/93 (112) 96 07/12/17 04:24 36.6 71 16 123/80 (94) 95 Room Air 07/12/17 04:00 Room Air 07/12/17 03:35 36.6 71 16 123/80 (94) 95 Room Air 07/12/17 00:19 36.6 85 16 147/92 (110) 97 159/86 (110) 07/12/17 00:00 97 Room Air Last Recorded Weight-Kilograms: 85.000 Physical Exam Constitutional: General Apperance: heathly-appearing Level of Distress: NAD Lungs: Respiratory effort: no dyspnea, good air movement Auscultation: breath sounds normal, no wheezing Cardiovascular: Heart Auscultation: no murmurs, no rubs, no gallops, irregular rate rhythm Peripheral Pulses: Bruits: none appreciated Extremities: no edema Data Laboratory Results: Last 24 Hours Test 07/11/17 10:50 07/12/17 05:54 07/12/17 06:45 White Blood Count 9.32 K/uL 9.26 K/uL Red Blood Count 5.70 M/uL 5.00 M/uL Hemoglobin 18.6 g/dL 15.8 g/dL Hematocrit 51.6 % 45.7 % Mean Corpuscular Volume 90.5 fL 91.4 fL Mean Corpuscular Hemoglobin 32.6 pg 31.6 pg Mean Corpuscular Hemoglobin Concent 36.0 g/dl 34.6 g/dl RDW Standard Deviation 46.3 fL 47.0 fL RDW Coefficient of Variation 13.9 % 14.1 % Platelet Count 212 K/uL 193 K/uL Mean Platelet Volume 9.8 fL 9.7 fL Prothrombin Time 10.7 SECONDS Prothromb Time International Ratio 1.0 Activated Partial Thromboplast Time 27.6 SECONDS Partial Thromboplastin Ratio 1.1 Sodium Level 137 mmol/L 139 mmol/L Potassium Level 3.5 mmol/L 3.8 mmol/L Chloride Level 105 mmol/L 107 mmol/L Carbon Dioxide Level 25 mmol/L 28 mmol/L Anion Gap 7.0 mmol/L 4.0 mmol/L Blood Urea Nitrogen 11 mg/dl 15 mg/dl Creatinine 1.43 mg/dl 1.43 mg/dl Est Creatinine Clear Calc Drug Dose 48.0 ml/min 47.4 ml/min Estimated GFR () 55.1 55.1 Estimated GFR (Non- 47.6 47.6 BUN/Creatinine Ratio 7.6 10.8 Random Glucose 134 mg/dl 101 mg/dl Calcium Level 8.8 mg/dl 8.3 mg/dl Magnesium Level 2.0 mg/dl Total Bilirubin 1.1 mg/dl Aspartate Amino Transf (AST/SGOT) 21 U/L Alanine Aminotransferase (ALT/SGPT) 28 U/L Alkaline Phosphatase 48 U/L Troponin I < 0.015 ng/ml Total Protein 7.6 gm/dl Albumin 4.0 gm/dl Globulin 3.6 gm/dl Albumin/Globulin Ratio 1.1 Thyroid Stimulating Hormone (TSH) 2.060 uIu/ml Bedside Glucose 94 mg/dl Telemetry reviewed: Remains in AF with controlled HR Assessment and Plan #1. Atrial fibrillation: At this point we still do not know whether he has paroxysmal atrial fibrillation or persistent, I can't tell the duration since he seems completely asymptomatic. It probably occurred less than 6 months ago since he was evaluated at his physician's office at that time, but I suspect it is more recent. It may be paroxysmal and may self terminated. In any case I think the appropriate treatment at the moment is rate control and anticoagulation, if he remains in it I would plan on cardioversion after 3-4 weeks of appropriate anticoagulation. I will arrange an office followup in about 3 weeks. Thank you for allowing me to participate in his care.
[2017-07-12] MEDS ORDERED: OMEGA-3 (PURIFIED FISH OIL) 1 GM CAP PO SCH (09:00)
[2017-07-12] MEDS ORDERED: NEBIVOLOL HCL 5 MG TAB PO SCH (09:00)
[2017-07-12] MEDS ORDERED: AMLODIPINE BESYLATE 5 MG TAB PO SCH (09:00)
[2017-07-12] MEDS ORDERED: NON-FORMULARY MEDICATION SCH (09:00)
[2017-07-12] MEDS ORDERED: ELQ25 PO (12:30)
--- NOTE | 2017-07-12 12:33 | Discharge Instructions ---
Discharge Instructions Date of Service Jul 12, 2017. Admission Reason for Admission: Rapid Atrial Fibrillation Discharge Discharge Diagnosis / Problem: afib with RVR Discharge Goals Goal(s): Decrease discomfort Activity Recommendations Activity Limitations: resume your previous activity . Instructions / Follow-Up Instructions / Follow-Up you have new onset a. fib with RVR , you need to continue on Eliquis for stroke prevention You need to be seen by cardiology Dr. Teresa as instructed in 1 week to continue care of new onset A. fib - you need to follow up with your primary care physician in 1 week, - take medication as instructed, never overdose or any misuse, or take with alcohol, because misuse of medicine may cause organ damage or , call your primary care physician if have questions of medicaitons. - call your primary care physician OR go to local emergency room if has any fever/chill, chest pain, shortness of breathing, nausea/vomiting/abdominal pain , facial droop/slurry speech/local weakness, or if has any questions. - fall precaution - diet as instructed - you need to follow up with your subspecialist - you should understand that it is important to follow up the above instruction , and "not following the above instruction" may cause delayed or missed care of your medical conditions which may cause permanent organ damage and even . Current Hospital Diet Patient's current hospital diet: AHA Diet (Heart Healthy) Discharge Diet Recommended Diet: AHA Diet (Heart Healthy) Procedures Procedures Performed: no Pending Studies Studies pending at discharge: no Laboratory Results Meds Administered (Past 24Hrs) Medications (Trade) Dose Ordered Sig/Mel Route Start Time Stop Time Status Last Admin Dose Admin Sodium Chloride 500 ml @ 999 mls/hr Q31M STAT IV 07/11/17 10:48 07/11/17 11:18 DC 07/11/17 11:02 999 MLS/HR Metoprolol Tartrate (Lopressor Iv) 10 mg NOW STAT IV 07/11/17 10:48 07/11/17 10:51 DC 07/11/17 11:03 5 MG Sodium Chloride 1,000 ml @ 100 mls/hr Q10H IV 07/11/17 12:21 07/11/17 22:20 DC 07/11/17 15:18 100 MLS/HR Fish Oil ([place]-3 (Purified Fish Oil) Cap) 1 gm DAILY PO 07/12/17 09:00 3//18 08:59 07/12/17 07:59 1 GM Rosuvastatin Calcium (Crestor Tab) 10 mg HS PO 07/11/17 21:00 08/10/17 20:59 07/11/17 20:41 10 MG Metoprolol Tartrate (Lopressor Tab) 50 mg NOW STAT PO 07/11/17 12:21 07/11/17 12:33 DC 07/11/17 12:49 50 MG Metoprolol Tartrate (Lopressor Tab) 50 mg BID PO 07/11/17 21:00 07/11/17 23:00 DC 07/11/17 20:42 50 MG Apixaban (Eliquis Tab) 5 mg BID PO 07/11/17 12:30 08/10/17 12:29 07/12/17 07:59 5 MG Nebivolol (Bystolic Tab) 10 mg DAILY PO 07/12/17 09:00 08/11/17 08:59 07/12/17 07:59 10 MG Medical Emergencies . Who to Call and When: Medical Emergencies: If at any time you feel your situation is an emergency, please call 911 immediately. . Non-Emergent Contact Non-Emergency issues call your: Primary Care Provider, Investment Executive . . "Provider Documentation" section prepared by Keyur Navarrete. . VTE Core Measure Inpt VTE Proph given/why not?: Other Anticoagulation
[2017-07-12] MEDS ORDERED: BYS5 PO (13:57)
--- NOTE | 2017-07-12 15:44 | Discharge Summary ---
Discharge Summary Date of Service Jul 12, 2017. Discharge Summary Admission Date: Jul 11, 2017 at 12:27 Discharge Date: Jul 12, 2017 Discharge Disposition: Home Principal Diagnosis: new onset a. fib with RVR Problems/Secondary Diagnoses: on Eliquis for stroke prevention Procedures: no Consultations: Director Medication Reconciliation New Medications: Apixaban (Eliquis) 2.5 Mg Tab 5 MG PO BID for 30 Days, #120 TAB Nebivolol HCl (Bystolic) 5 Mg Tab 10 MG PO DAILY for 30 Days, #60 TAB Continued Medications: Fish Oil ([place]-3) 1 Ea Cap 1 CAP PO DAILY, 0 Refills Rosuvastatin Calcium (Crestor) 10 Mg Tab 10 MG PO HS Discharge Exam Doing well, although bed, ready to go home, Review of Systems: Constitutional: No fever, No chills, No sweats, No weight loss, No weakness , No fatigue, No problem reported Eyes: No worsening of vision, No eye pain, No redness, No discharge, No diplopia, No problem reported ENT: No hearing loss, No unusual epistaxis, No nasal symptoms, No sore throat, No tinnitus, No dental problems, No trouble swallowing, No problem reported Cardiovascular: + chest pain, + orthopnea, + PND, + edema, + claudication, + palpitations, + problem reported Abdomen: No pain, No nausea, No vomiting, No diarrhea, No constipation, No GI bleeding, No problem reported Musculoskeletal: No joint pain, No muscle pain, No swelling, No calf pain, No problem reported Genitourinary - Male: No hematuria, No dysuria, No urinary frequency, No urinary urgency, No urinary hesitancy, No urinary retention, No urinary incontinence, No penile discharge, No lesions, No impotence, No problem reported Endocrine: No fatigue, No excessive thirst, No excessive urination, No problem reported Physical Exam: General Appearance: WD/WN, no apparent distress Eyes: normal inspection, PERRL ENT: normal ENT inspection, hearing grossly normal Neck: supple, no adenopathy Respiratory/Chest: chest non-tender, no respiratory distress, no accessory muscle use, + decreased breath sounds Cardiovascular: regular rate, rhythm, no edema, no JVD, no murmur, normal peripheral pulses, + irregularly irregular Abdomen / GI: normal bowel sounds, non tender, soft, no organomegaly, no pulsatile mass, normal rectal exam Extremities: normal inspection, no calf tenderness, normal capillary refill , no pedal edema, normal range of motion Neurologic/Psychiatric: 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 fib Patient went to [facility] had routine colonoscopy yesterday, During that visit had irregular pulse and tachycardia; EKG confirmed a. fib. Colonoscopy was deferred due to the newly discovered a. fib. He has no symptoms referable to the a. fib and has been working out at the gym recently without any limiting symptoms. Received IV lopressor in ER with improved rate control. 1. new onset a. fib with RVR, CHADsVASC score is at least a 3 (age, HTN), recommended systemic anticoagulation, ordered eliquis 5mg BID (cost $20/month), cardiology saw patient, agreed to continue anticoagulation and plan 4 weeks later to have cardioversion after full coagulation, discussed with patient about the plan the understand and agreed HTN, bystolic greenish to 10 mg by mouth hyperlipidemia, minimal increase in creatinine above baseline (1.2-1.3), h/o prostate cancer; this conditions related to be stable, advised to follow-up with PCP Was doing colonoscopy prior to this admission, advised him to reschedule of the procedure with GI physician Instructions / Follow-Up you have new onset a. fib with RVR , you need to continue on Eliquis for stroke prevention You need to be seen by cardiology Dr. Teresa as instructed in 1 week to continue care of new onset A. fib - you need to follow up with your primary care physician in 1 week, - take medication as instructed, never overdose or any misuse, or take with alcohol, because misuse of medicine may cause organ damage or , call your primary care physician if have questions of medicaitons. - call your primary care physician OR go to local emergency room if has any fever/chill, chest pain, shortness of breathing, nausea/vomiting/abdominal pain , facial droop/slurry speech/local weakness, or if has any questions. - fall precaution - diet as instructed - you need to follow up with your subspecialist - you should understand that it is important to follow up the above instruction , and "not following the above instruction" may cause delayed or missed care of your medical conditions which may cause permanent organ damage and even . Total Time Spent: Greater than 30 minutes This includes examination of the patient, discharge planning, medication reconciliation, and communication with other providers. Discharge Instructions Please refer to the electronic Patient Visit Report (Discharge Instructions) for additional information. Additional Copies To Fransisco Way M.D.; Jevon Teresa M.D.
== END 2017-07-12 14:12 | disposition home or self-care (01) ==
LOC: C.EDB 10:36 → C.2T 12:27 → ENRESERV 12:47
PROVIDERS: ADMIT Internal Medicine; ATTEND Hospitalist
DX: I48.91 Unspecified atrial fibrillation (principal); I10 Essential (primary) hypertension; E78.5 Hyperlipidemia, unspecified; R73.9 Hyperglycemia, unspecified; D75.1 Secondary polycythemia; Z79.82 Long term (current) use of aspirin; Z85.46 Personal history of malignant neoplasm of prostate; Z82.49 Family history of ischemic heart disease and other diseases of the circulatory system

== ENCOUNTER → 2018-01-30 | Outpatient (CLI) | payer BC ==
[~2018-01-30] MED LIST changes: -AMLO-110 PO; -ASPCH81; -BYS/5 PO; +CRS/10 PO; -CRS10 PO; +ELQ25 PO; +NEBI20TA2 PO
[2018-01-30 12:17] LABS: HEMOGLOBIN A1C 5.6 % (4.5-5.6)
[2018-01-30 12:50] LABS: ALBUMIN 3.8 gm/dl (3.4-5.0); ALKALINE PHOSPHATASE 54 U/L (45-117); ALT/SGPT 28 U/L (12-78); AST/SGOT 20 U/L (15-37); BLOOD UREA NITROGEN 17 mg/dl (7-18); CALCIUM 8.5 mg/dl (8.5-10.1); CARBON DIOXIDE 28 mmol/L (21-32); CHOLESTEROL 112 mg/dl (0-200); CREATININE 1.21 mg/dl (0.60-1.40); GLUCOSE 105 mg/dl (70-99); LDL CHOLESTEROL CALCULATED 46 mg/dl; POTASSIUM 3.8 mmol/L (3.5-5.1); SODIUM 137 mmol/L (136-145); TOTAL PROTEIN 7.3 gm/dl (6.4-8.2)
== END | disposition home or self-care (01) ==
LOC: C.LAB 10:42
PROVIDERS: ATTEND Internal Medicine
DX: C61 Malignant neoplasm of prostate (principal); R73.01 Impaired fasting glucose